=== PATIENT | male | born 1970 | race Caucasian/White ===

== ENCOUNTER 2017-01-27 13:19 | Inpatient (IN) | payer OTHER ==
[~2017-01-27] VITALS: Ht 165.1 cm; Wt 107.0 kg
[~2017-01-27 13:19] MED LIST: ALBI1INJ2 SQ; ATOR1TAB18 PO; HYDR25TA5 PO; LEVEMIR SQ; LOSA100T PO; NOVOLOGP2 SQ; OMEP20TA PO; SUCR1TAB PO
[2017-01-30] VITALS (7 sets, daily range): BP systolic 127–162; BP diastolic 60–84; PULSE 79–100; RESP 16–20; TEMP 96.1–98.7; O2SAT 93–98
[2017-01-30] MEDS ORDERED: VANCOMYCIN 1,000 MG/NS 250ML (for <70 kg) IV SCH ×2 (06:00)
[2017-01-30] MEDS ORDERED: CHLORHEXIDINE GLUCONATE 2 % 1 PACK (2 CLOTHS) TOPICAL PRN (06:00)
[2017-01-30] MEDS ORDERED: metroNIDAZOLE 500 MG INJ 100 ML IV SCH (06:00)
[2017-01-30] MEDS ORDERED: INSULIN HUMAN REGULAR 1,000 UNITS/10 ML VIAL SQ PRN (06:00)
[2017-01-30] MEDS ORDERED: POVIDONE IODINE 5% (ANTISEPSIS KIT) 4 APPLICATIONS EACH NARE PRN (06:00)
[2017-01-30] MEDS ORDERED: ACETAMINOPHEN 1000 MG/100 ML VIAL IV SCH (06:00)
[2017-01-30] MEDS ORDERED: SCOPOLAMINE 1.5 MG PATCH T-DERMAL SCH (06:00)
[2017-01-30] MEDS ORDERED: LACTATED RINGER'S 1000 ML IV PRN (06:00)
[2017-01-30] MEDS ORDERED: SODIUM CHLORID 0.9% 500 ML IV PRN (06:00)
[2017-01-30] MEDS ORDERED: METOPROLOL TARTRATE 25 MG TAB PO PRN (06:00)
[2017-01-30] MEDS ORDERED: APREPITANT 40 MG CAP PO SCH (06:00)
[2017-01-30] MEDS: ONDANSETRON HCL 4 MG/2 ML VIAL IV PUSH SCH ×2 (06:15→12:59)
[2017-01-30] MEDS ORDERED: BUPIVACAINE/EPINEPHRINE 0.25% 50 ML VIAL ONE (07:12)
[2017-01-30] MEDS ORDERED: MIDAZOLAM HCL 2 MG/2 ML VIAL ONE (07:20)
[2017-01-30] MEDS ORDERED: FAMOTIDINE 20 MG/2 ML VIAL ONE (07:20)
[2017-01-30] MEDS ORDERED: ONDANSETRON HCL 4 MG/2 ML VIAL ONE (07:21)
[2017-01-30] MEDS ORDERED: fentaNYL CITRATE 250 MCG/5 ML AMP ONE (07:21)
[2017-01-30] MEDS ORDERED: METHYLENE BLUE 100 MG/10 ML VIAL NG ONE (08:07)
[2017-01-30] MEDS ORDERED: diphenhydrAMINE HCL 50 MG/ML VIAL IV PRN (09:30)
[2017-01-30] MEDS ORDERED: ONDANSETRON HCL 4 MG/2 ML VIAL IV PRN (09:30)
[2017-01-30] MEDS ORDERED: diphenhydrAMINE HCL ELIXIR 12.5 MG/5 ML CUP PO PRN (09:30)
[2017-01-30] MEDS ORDERED: Post-op Orders (for Pharmacy) MISC OTHER ONE (09:30)
[2017-01-30] MEDS ORDERED: ENALAPRILAT 1.25 MG/ML VIAL IV PUSH PRN (09:30)
[2017-01-30] MEDS ORDERED: DEXTROSE 50% IN WATER 50 ML VIAL(D50) IV PUSH PRN (09:30)
[2017-01-30] MEDS ORDERED: NALOXONE HCL 0.4 MG/ML AMP IV PRN (09:30)
[2017-01-30] MEDS ORDERED: ACETAMINOPHEN 325MG/HYDROcodone 7.5MG/15ML UDC PO PRN ×2 (09:30)
[2017-01-30] MEDS ORDERED: GLUCAGON 1 MG/ML VIAL OTHER PRN (09:30)
[2017-01-30] MEDS ORDERED: SODIUM CHLORIDE 0.9% FLUSH 10 ML FLUSH IV FLUSH PRN (09:30)
[2017-01-30] MEDS ORDERED: MORPHINE SULFATE 4 MG/ML INJ ONE (09:49)
[2017-01-30] MEDS: 1/2 NS + KCL 20 MEQ INJ 1,000 ML IV SCH ×2 (10:00→17:51)
[2017-01-30] MEDS ORDERED: 1/2 NS + KCL 20 MEQ INJ 1,000 ML IV SCH (10:00)
[2017-01-30] MEDS ORDERED: *morphine SULFATE 8 MG/ML PERIprocedure ONLY ONE (10:01)
[2017-01-30] MEDS: INSULIN NovoLIN REGULAR SUPPLEMENTAL SCALE SQ SCH ×3 (10:03→21:00)
[2017-01-30] MEDS: MORPHINE SULFATE 30 MG/30 ML PCA IV SCH (10:17)
[2017-01-30] MEDS ORDERED: PROPOFOL 200 MG/20 ML AMP IV ONE (12:00)
[2017-01-30] MEDS ORDERED: NEOSTIGMINE 3 MG/3 ML SYR IV ONE (12:00)
[2017-01-30] MEDS: metroNIDAZOLE 500 MG INJ 100 ML IV SCH ×2 (13:01→20:54)
[2017-01-30] MEDS: PCA - TOTAL MG MORPHINE DELIVERED PER SHIFT SCH ×2 (14:00→22:00)
[2017-01-30] MEDS: METOCLOPRAMIDE HCL 10 MG/2 ML VIAL IV PUSH SCH ×2 (15:05→17:49)
[2017-01-30] MEDS: ENOXAPARIN SODIUM 40 MG/0.4 ML SYRINGE SQ SCH (15:06)
[2017-01-30] MEDS: RESP: ALBUTEROL 2.5 MG/3 ML NEB (SCH) INH ×2 (15:16→21:43)
[2017-01-30] MEDS: VANCOMYCIN INJ 1,000 MG in SODIUM CHLOR 0.9% 250 ML INJ 250 ML IV SCH (17:50)
[2017-01-30] MEDS: SODIUM CHLORIDE 0.9% FLUSH 10 ML FLUSH IV FLUSH SCH (20:49)
[2017-01-31] VITALS (7 sets, daily range): BP systolic 125–145; BP diastolic 66–84; PULSE 80–96; RESP 18–20; TEMP 96.6–98.4; O2SAT 96–98
[2017-01-31] MEDS: METOCLOPRAMIDE HCL 10 MG/2 ML VIAL IV PUSH SCH ×2 (00:17→05:24)
[2017-01-31] MEDS: 1/2 NS + KCL 20 MEQ INJ 1,000 ML IV SCH ×3 (02:00→18:00)
[2017-01-31] MEDS: RESP: ALBUTEROL 2.5 MG/3 ML NEB (SCH) INH ×6 (04:00→20:00)
[2017-01-31] MEDS: MORPHINE SULFATE 30 MG/30 ML PCA IV SCH (04:05)
[2017-01-31] MEDS: metroNIDAZOLE 500 MG INJ 100 ML IV SCH (05:23)
[2017-01-31] MEDS: PCA - TOTAL MG MORPHINE DELIVERED PER SHIFT SCH (05:27)
[2017-01-31 05:50] LABS: AUTOMATED NEUTROPHIL # 10.5 TH/MM3 (1.8-7.7); BASOPHIL # 0.1 TH/MM3 (0-0.2); BASOPHIL % 0.4 % (0.0-2.0); EOSINOPHIL # 0.1 TH/MM3 (0-0.4); EOSINOPHIL % 0.7 % (0.0-4.0); HEMATOCRIT 44.5 % (39.0-51.0); HEMO FLAGS DIFF FINAL; LYMPH % 11.3 % (9.0-44.0); LYMPHOCYTE # 1.5 TH/MM3 (1.0-4.8); MEAN CELL VOLUME 85.6 FL (80.0-100.0); MEAN CORPUSCULAR HEMOGLOBIN 28.1 PG (27.0-34.0); MEAN CORPUSCULAR HGB CONC 32.8 % (32.0-36.0); MONO % 10.8 % (0.0-8.0); NEUT % 76.8 % (16.0-70.0); PLATELET COUNT 242 TH/MM3 (150-450); RED CELL DISTRIBUTION WIDTH 14.5 % (11.6-17.2); WHITE BLOOD COUNT 13.7 TH/MM3 (4.0-11.0)
[2017-01-31 06:03] LABS: BICARBONATE 26.5 MEQ/L (21.0-32.0); MAGNESIUM 2.4 MG/DL (1.5-2.5); POTASSIUM 4.8 MEQ/L (3.5-5.1)
[2017-01-31] MEDS: INSULIN NovoLIN REGULAR SUPPLEMENTAL SCALE SQ SCH ×4 (06:17→21:00)
[2017-01-31] MEDS: VANCOMYCIN INJ 1,000 MG in SODIUM CHLOR 0.9% 250 ML INJ 250 ML IV SCH (06:22)
[2017-01-31] MEDS: SODIUM CHLORIDE 0.9% FLUSH 10 ML FLUSH IV FLUSH SCH ×2 (10:23→21:00)
[2017-01-31] MEDS: PANTOPRAZOLE SOD 40 MG DELAYED RELEASE TAB PO SCH (10:24)
[2017-01-31] MEDS ORDERED: SODIUM CHLORID 0.9% 500 ML INJ 500 ML IV ONE (10:45)
--- NOTE | 2017-01-31 11:42 | HHI.PR ---
Subjective Subjective Notes 46yo male POD#1 RNY. Sitting up in chair. Voices no complaints. Passing flatus Objective Vitals/I&O Vital Signs Date Time Temp Pulse Resp B/P Pulse Ox O2 Delivery O2 Flow Rate FiO2 01/31/17 09:20 97 21 01/31/17 08:00 98.4 96 18 144/84 01/30/17 10:38 Nasal Cannula 2 Labs Laboratory Tests Test 01/31/17 05:09 White Blood Count 13.7 Red Blood Count 5.20 Hemoglobin 14.6 Hematocrit 44.5 Mean Corpuscular Volume 85.6 Mean Corpuscular Hemoglobin 28.1 Mean Corpuscular Hemoglobin 32.8 Concent Red Cell Distribution Width 14.5 Platelet Count 242 Mean Platelet Volume 8.3 Neutrophils (%) (Auto) 76.8 Lymphocytes (%) (Auto) 11.3 Monocytes (%) (Auto) 10.8 Eosinophils (%) (Auto) 0.7 Basophils (%) (Auto) 0.4 Neutrophils # (Auto) 10.5 Lymphocytes # (Auto) 1.5 Monocytes # (Auto) 1.5 Eosinophils # (Auto) 0.1 Basophils # (Auto) 0.1 CBC Comment DIFF FINAL Differential Comment Sodium Level 139 Potassium Level 4.8 Chloride Level 104 Carbon Dioxide Level 26.5 Anion Gap 9 Blood Urea Nitrogen 53 Creatinine 2.16 Estimat Glomerular Filtration 33 Rate Random Glucose 142 Calcium Level 9.1 Magnesium Level 2.4 Cardiovascular: Regular Lungs: Clear Abdomen: Post-op tenderness Extremities: Perfused Wound Wound : Wound Location: Abdomen Appearance: Clean & Dry A/P Assessment and Plan Creat >2.0, 500ml fluid bolus, keep fluids at 125ml/hour Recheck BMP in AM Continue with frequent ambulation Continue to increase fluids as tolerated The exam, history, and the medical decision-making described in the above note were completed with the assistance of the mid-level provider. I reviewed and agree with the findings presented. I attest that I had a [id number]-[id number] encounter with the patient on the same day, and personally performed and documented my assessment and findings in the medical record. Discharge Planning D/C home tomorrow Yury Koroma [employer] SALES REPRESENTATIVE January 31, 2017 11:42 Ross Real MD February 08, 2017 09:30
[2017-01-31] MEDS ORDERED: METOCLOPRAMIDE HCL 10 MG/2 ML VIAL IV PUSH PRN (12:00)
--- NOTE | 2017-01-31 13:34 | MP ---
cc: SANDY ENGLISH DATE OF 1970 DATE OF OPERATION 01/30/2017 PREOPERATIVE DIAGNOSES Morbid obesity with a BMI of 40, complicated by type 2 diabetes, hypercholesterolemia, essential hypertension. POSTOPERATIVE DIAGNOSES Morbid obesity with a BMI of 40, complicated by type 2 diabetes, hypercholesterolemia, essential hypertension. PROCEDURE Laparoscopic Hang-en-Y gastric bypass, 100-cm Hang limb, antegastric, antecolic. SURGEON Sandy English MD [employer] ASSEMBLER MD Dr. Chris Thomas's assistance was necessary for the procedure, for manipulation and exposure. Dr. Perez assisted during the entire procedure. The assistant inventory manager provided by [employer] was utilized at the back table and for camera holding. ANESTHESIA General endotracheal anesthesia. ESTIMATED BLOOD LOSS Scant. FINDINGS Fatty liver. SPECIMENS None. COMPLICATIONS None. OPERATION The patient was brought into the operating room and placed on the operating table in supine position. Bilateral sequential inflation devices were placed on the lower extremities, general anesthesia instituted, Lopez catheter placed, antibiotics initiated. The abdomen was prepped and draped sterilely. A point 18 cm distal to the xiphoid in the midline was anesthetized with 0.25% Marcaine with epinephrine. A skin incision was made, a 5-mm Optiview port placed under direct vision and pneumoperitoneum created. Under direct vision, a 5-mm left upper quadrant, a 12-mm left upper quadrant, a 12-mm right upper quadrant and 5-mm right upper quadrant ports were placed. Prior to placement of all ports, the skin and peritoneum were anesthetized with 0.25% Marcaine with epinephrine. The patient patient's omentum was taken off of the abdominal wall using a harmonic. It was split down the middle to create a path for the Hang limb. The ligament of Treitz was identified, a point 40 cm distal identified, the small bowel divided using an [place] Flex staple with a white load, reinforced with SeamGuard. The distal segment was brought up for a distance of 100 cm, enterotomy created in this region, enterotomy created in the biliopancreatic limb and a vrka-pa-pthg stapled jejunojejunostomy created in the usual manner. The mesenteric defect of the jejunojejunostomy was closed with 2-0 Surgidac suture in a running manner. The patient was placed in reverse Trendelenburg position, left side up. The Joy Flex retractor placed and the left lobe of the liver retracted. The angle of His was taken down bluntly, a point 5 cm distal to the GE junction along the lesser curve identified, the lesser sac entered using blunt dissection, the stomach partitioned horizontally using the [place] Flex stapler blue load. Additional firings were taken toward the angle of His to completely divide the stomach. A gastrotomy was created in the radha-stomach, enterotomy in the Hang limb, a gastrojejunostomy created with a stomal opening of 2 cm. An 18-Chilean OG tube was placed across the anastomosis. The defect was then closed in two layers of running 2-0 Vicryl. Prior to placement of the second layer, methylene blue was instilled through the OG tube. There was no evidence of extravasation. Evicel was then placed over the gastrojejunostomy, jejunojejunostomy and all staple lines, a 10 flat MANN placed posterior to the gastrojejunostomy. The operative field was inspected. Hemostasis was present. The Joy Flex retractor was removed. The tubing of the MANN was brought out through the 5-mm port site in the right upper quadrant. The pneumoperitoneum was released, all ports removed, all skin incisions closed with 4-0 Monocryl. The abdominal wall was cleaned and a sterile dressing placed. The patient was awakened and taken to recovery room stable. MD VIKTORIYA Leos/SSB /9:27 AM /1:28 PM
[2017-01-31] MEDS: ENOXAPARIN SODIUM 40 MG/0.4 ML SYRINGE SQ SCH (15:26)
[2017-02-01] VITALS: BP 132/67; PULSE 86; RESP 18; TEMP 98.2; O2SAT 97
[2017-02-01 00:35] VITALS: O2SAT 98
[2017-02-01] MEDS: RESP: ALBUTEROL 2.5 MG/3 ML NEB (SCH) INH ×3 (00:35→07:42)
[2017-02-01] MEDS: 1/2 NS + KCL 20 MEQ INJ 1,000 ML IV SCH ×2 (02:07→08:48)
[2017-02-01] MEDS: INSULIN NovoLIN REGULAR SUPPLEMENTAL SCALE SQ SCH ×2 (07:00→11:00)
[2017-02-01 07:41] VITALS: O2SAT 98
[2017-02-01 08:00] VITALS: BP 129/61; PULSE 81; RESP 16; TEMP 99.3; O2SAT 96
[2017-02-01 08:30] LABS: POTASSIUM 4.5 MEQ/L (3.5-5.1)
[2017-02-01] MEDS: PANTOPRAZOLE SOD 40 MG DELAYED RELEASE TAB PO SCH (08:47)
[2017-02-01] MEDS: SODIUM CHLORIDE 0.9% FLUSH 10 ML FLUSH IV FLUSH SCH (08:48)
--- NOTE | 2017-02-01 11:12 | HHI.PR ---
Subjective Subjective Notes POD#2 RNY. Sitting up in chair Passing flatus No acute distress Objective Vitals/I&O Vital Signs Date Time Temp Pulse Resp B/P Pulse Ox O2 Delivery O2 Flow Rate FiO2 02/01/17 08:00 99.3 81 16 129/61 96 01/31/17 16:20 21 01/30/17 10:38 Nasal Cannula 2 Labs Laboratory Tests Test 02/01/17 06:21 Sodium Level 140 Potassium Level 4.5 Chloride Level 105 Carbon Dioxide Level 26.0 Anion Gap 9 Blood Urea Nitrogen 39 Creatinine 1.68 Estimat Glomerular Filtration 44 Rate Random Glucose 149 Calcium Level 8.8 Cardiovascular: Regular Lungs: Clear Abdomen: Post-op tenderness Extremities: Perfused Wound Wound : Wound Location: Abdomen Appearance: Clean & Dry A/P Assessment and Plan BUN/Creat improved Continue with frequent ambulation Continue to increase fluids as tolerated The exam, history, and the medical decision-making described in the above note were completed with the assistance of the mid-level provider. I reviewed and agree with the findings presented. I attest that I had a emol-rc-nyed encounter with the patient on the same day, and personally performed and documented my assessment and findings in the medical record. Discharge Planning D/C home today with sliding scale insulin Yury Koroma February 01, 2017 11:12 Ross Real MD February 08, 2017 09:34
[2017-02-01] MEDS ORDERED: PHENYLEPH/NS 1000 MCG/10 ML SYR IV ONE (13:31)
== END 2017-02-01 13:32 | disposition home or self-care (01) | DRG 620 ==
LOC: HSDI 01-30 05:23 → N07B 01-30 10:57
PROVIDERS: ADMIT Surgery; ATTEND Surgery
PROC: 0D164ZA Bypass Stomach to Jejunum, Percutaneous Endoscopic Approach (ICD-10-PCS; principal; 2017-01-30 07:23)
DX: E66.01 Morbid (severe) obesity due to excess calories (principal); N18.4 Chronic kidney disease, stage 4 (severe); E11.22 Type 2 diabetes mellitus with diabetic chronic kidney disease; K76.0 Fatty (change of) liver, not elsewhere classified; E78.00 Pure hypercholesterolemia, unspecified; E78.5 Hyperlipidemia, unspecified; K21.9 Gastro-esophageal reflux disease without esophagitis; I12.9 Hypertensive chronic kidney disease with stage 1 through stage 4 chronic kidney disease, or unspecified chronic kidney disease; Z79.4 Long term (current) use of insulin; Z68.41 Body mass index [BMI] 40.0-44.9, adult; Z88.0 Allergy status to penicillin; Z88.1 Allergy status to other antibiotic agents
CPT/HCPCS: 80048; 82948; 83735; 85025; 94150; 94640; 94664; J0131; J1650; J2250; J2270; J2370; J2405; J2710; J2765; J3010; J3370; J7050; J7120; J7613; J8501